=== PATIENT | female | born 1990 | race Caucasian/White ===

== ENCOUNTER 2020-04-01 22:50 | Inpatient (IN) | payer OTHER ==
[2020-04-01] MEDS ORDERED: ELECTROLYTE-148 SOLN 500 ML IV ONE (23:30)
[2020-04-01] MEDS ORDERED: PROMETHAZINE HCL 25 MG/1 ML VIAL ONE (23:52)
[2020-04-01] MEDS ORDERED: BUTORPHANOL TARTRATE 2 MG/ML VIAL ONE (23:52)
[2020-04-02] MEDS ORDERED: ELECTROLYTE-148 SOLN 500 ML IV ONE
[2020-04-02 00:13] LABS: BASO % 0.1 % (0-2.0); HEMATOCRIT 37.4 % (32.4-45.2); HEMOGLOBIN 12.4 GM/dL (10.7-15.3); LYMPH % 6.7 % (8-40); MCH 30.3 pg (25.7-33.7); MCHC 33.3 g/dl (32.0-36.0); MONO % 5.8 % (3.8-10.2); NEUT % 87.4 % (42.8-82.8); PLATELET COUNT 132 K/MM3 (134-434); RBC 4.11 M/mm3 (3.60-5.2); WHITE BLOOD COUNT 15.9 K/mm3 (4.0-10.0)
[2020-04-02] MEDS ORDERED: PROMETHAZINE HCL 25 MG/1 ML VIAL IVPB ONE (00:15)
[2020-04-02] MEDS ORDERED: BUTORPHANOL TARTRATE 2 MG/ML VIAL IVPB ONE (00:15)
[2020-04-02 00:31] LABS: BLOOD UREA NITROGEN 3.5 mg/dL (7-18); CALCIUM 8.7 mg/dL (8.5-10.1)
[2020-04-02 00:33] LABS: POTASSIUM 3.8 mmol/L (3.5-5.1)
[2020-04-02 00:35] LABS: CREATININE 0.5 mg/dL (0.55-1.3)
[2020-04-02 00:55] LABS: ACTIVATED PTT 26.5 SECONDS (25.2-36.5); INR 0.98 (0.83-1.09); PROTHROMBIN TIME (PATIENT) 12.1 SEC (9.7-13.0)
[2020-04-02 01:06] VITALS: BMI 32.9
[2020-04-02] MEDS ORDERED: FENTANYL/BUPIVACAINE/NS/PF - PCEA - 50 ML DISP.SYRIN EP ONE ×3 (02:19→10:21)
[2020-04-02] MEDS ORDERED: BUPIVACAINE HCL/PF 0.25% (2.5MG/ML) 10 ML VIAL ONE (02:26)
[2020-04-02] MEDS: FENTANYL/BUPIVACAINE/NS/PF - PCEA - 50 ML DISP.SYRIN EP SCH (02:45)
[2020-04-02] MEDS ORDERED: NALOXONE HCL 0.4 MG/ML VIAL IVPUSH PRN (02:48)
[2020-04-02] MEDS: OXYTOCIN 30 UNITS in 0.9% NS 30 UNIT/500 ML INFUS.BAG IVPB SCH (03:00)
[2020-04-02] MEDS ORDERED: OXYTOCIN 30 UNITS in 0.9% NS 30 UNIT/500 ML INFUS.BAG IVPB ONE (03:23)
[2020-04-02] MEDS ORDERED: AMPICILLIN SODIUM 2 GM VIAL ONE (06:59)
[2020-04-02] MEDS ORDERED: AMPICILLIN - 2 GM in SODIUM CHLORIDE 100 ML IVPB ONE (07:00)
[2020-04-02] MEDS ORDERED: PCA PUMP NR ONE (07:32)
[2020-04-02] MEDS ORDERED: BUPIVACAINE HCL/PF 0.5% (5MG/ML) 10 ML VIAL ONE (10:41)
[2020-04-02] MEDS ORDERED: AMPICILLIN SODIUM 1 GM VIAL ONE (10:58)
[2020-04-02] MEDS: AMPICILLIN - 1 GM in SODIUM CHLORIDE 100 ML IVPB SCH ×2 (11:00→15:00)
[2020-04-02] MEDS ORDERED: OXYTOCIN 20 UNITS in 0.9% NS 20 UNIT/1,000 ML INFUS.BAG IV ONE ×2 (12:19→16:48)
[2020-04-02] MEDS ORDERED: LIDOCAINE HCL 1% PRESERVATIVE FREE - 30ML VIAL ONE (12:20)
[2020-04-02] MEDS: OXYTOCIN 20 UNITS in 0.9% NS 20 UNIT/1,000 ML INFUS.BAG IV SCH ×2 (14:15→16:50)
[2020-04-02 14:29] LABS: CORD HCO3 22.9 mmHg (20-29); CORD PCO2 73.8 mmHg (30-78); CORD pH 7.109 (7.14-7.44)
[2020-04-02 14:31] LABS: CORD HCO3 22.7 mmHg (20-29); CORD pH 7.135 (7.14-7.44)
[2020-04-02] MEDS ORDERED: BENZOCAINE 28 GM HEMORRHOIDAL OINTMENT TP PRN (15:06)
[2020-04-02] MEDS ORDERED: WITCH HAZEL 50% (TUCKS) 40 PAD/JAR PAD TP PRN (15:06)
[2020-04-02] MEDS ORDERED: BENZOCAINE 20% 57 GM BOTTLE TP PRN (15:06)
[2020-04-02] MEDS ORDERED: METHYLERGONOVINE MALEATE 0.2 MG/1 ML AMP IM PRN (15:06)
[2020-04-02] MEDS ORDERED: IBUPROFEN 600 MG TABLET (FP) PO ONE (15:52)
[2020-04-02] MEDS ORDERED: ACETAMINOPHEN 325 MG TABLET (FP) ONE (15:53)
[2020-04-02] MEDS: IBUPROFEN 600 MG TABLET (FP) PO PRN ×2 (15:55→21:33)
[2020-04-02] MEDS: ACETAMINOPHEN 325 MG TABLET (FP) PO PRN ×2 (15:55→21:34)
[2020-04-02] MEDS: FERROUS SO4 325 MG TABLET (FP) PO SCH (21:28)
[2020-04-03] MEDS: IBUPROFEN 600 MG TABLET (FP) PO PRN ×3 (05:54→22:53)
[2020-04-03] MEDS: ACETAMINOPHEN 325 MG TABLET (FP) PO PRN ×3 (05:54→22:53)
[2020-04-03 06:47] LABS: BASO % 0.3 % (0-2.0); EOS % 0.1 % (0-4.5); HEMATOCRIT 33.4 % (32.4-45.2); HEMOGLOBIN 11.2 GM/dL (10.7-15.3); LYMPH % 10.5 % (8-40); MCH 31.1 pg (25.7-33.7); MCHC 33.5 g/dl (32.0-36.0); MEAN CELL VOLUME 92.9 fl (80-96); MEAN PLT VOLUME 11.8 fl (7.5-11.1); MONO % 7.8 % (3.8-10.2); NEUT % 81.3 % (42.8-82.8); PLATELET COUNT 147 K/MM3 (134-434); RBC 3.59 M/mm3 (3.60-5.2); RDW 15.6 % (11.6-15.6); WHITE BLOOD COUNT 21.5 K/mm3 (4.0-10.0)
[2020-04-03] MEDS: DOCUSATE SODIUM 100 MG CAPSULE (FP) PO SCH (09:22)
[2020-04-03] MEDS: PRENATAL VITAMINS W/ FOLIC ACID TABLET (FP) PO SCH (09:22)
[2020-04-03] MEDS: FERROUS SO4 325 MG TABLET (FP) PO SCH ×2 (09:22→22:54)
[2020-04-03 09:58] LABS: ANISOCYTOSIS 0; MACROCYTOSIS 0; PLATELET ESTIMATE DECREASED
[2020-04-03] MEDS ORDERED: DIPHTH,PERTUSS(ACELL),TET 0.5 ML DISP.SYRIN IM ONE (10:00)
[2020-04-03] MEDS ORDERED: FLU VACCINE (FLULAVAL) PF 60 MCG/0.5 ML SYRINGE 2020-2021 IM ONE (12:00)
[2020-04-03] MEDS ORDERED: SENNOSIDES/DOCUSATE COMBO (SENNA PLUS) TABLET (UD) PO PRN (22:00)
[2020-04-04] MEDS: ACETAMINOPHEN 325 MG TABLET (FP) PO PRN ×2 (08:24→17:52)
[2020-04-04] MEDS: IBUPROFEN 600 MG TABLET (FP) PO PRN ×2 (08:24→17:53)
[2020-04-04] MEDS: PRENATAL VITAMINS W/ FOLIC ACID TABLET (FP) PO SCH (11:23)
[2020-04-04] MEDS: FERROUS SO4 325 MG TABLET (FP) PO SCH ×2 (11:23→21:06)
[2020-04-04] MEDS: DOCUSATE SODIUM 100 MG CAPSULE (FP) PO SCH (11:23)
[2020-04-04] MEDS: OXYTOCIN 30 UNITS in 0.9% NS 30 UNIT/500 ML INFUS.BAG IVPB SCH ×2 (19:15→19:16)
[2020-04-04] MEDS: FENTANYL/BUPIVACAINE/NS/PF - PCEA - 50 ML DISP.SYRIN EP SCH ×2 (19:15→19:16)
[2020-04-04] MEDS: OXYTOCIN 20 UNITS in 0.9% NS 20 UNIT/1,000 ML INFUS.BAG IV SCH (19:16)
[2020-04-05] MEDS: PRENATAL VITAMINS W/ FOLIC ACID TABLET (FP) PO SCH (11:11)
[2020-04-05] MEDS: DOCUSATE SODIUM 100 MG CAPSULE (FP) PO SCH (11:12)
[2020-04-05] MEDS: FERROUS SO4 325 MG TABLET (FP) PO SCH (11:12)
[2020-04-05] MEDS: IBUPROFEN 600 MG TABLET (FP) PO PRN (11:48)
[2020-04-05] MEDS: ACETAMINOPHEN 325 MG TABLET (FP) PO PRN (11:49)
[2020-04-05 13:55] VITALS: BP 121/84; PULSE 88; TEMP 98
== END 2020-04-05 18:30 | disposition home or self-care (01) | DRG 560 ==
LOC: JDEL 22:50 → JLDR 23:00 → J3W 04-02 17:09
PROVIDERS: ADMIT Obstetrics & Gynecology; ATTEND Obstetrics & Gynecology
PROC: 10E0XZZ Delivery of Products of Conception, External Approach (ICD-10-PCS; principal; 2020-04-02)
PROC: 10907ZC Drainage of Amniotic Fluid, Therapeutic from Products of Conception, Via Natural or Artificial Opening (ICD-10-PCS; 2020-04-02)
PROC: 0W8NXZZ Division of Female Perineum, External Approach (ICD-10-PCS; 2020-04-02)
DX: O70.1 Second degree perineal laceration during delivery (principal); Z3A.40 40 weeks gestation of pregnancy; Z37.0 Single live birth
CPT/HCPCS: 36415; 36600; 59025; 59409; 80048; 82803; 85025; 85610; 85730; 86780; 86850; 86900; 86901; C9803; U0003

== ENCOUNTER 2020-04-09 13:50 | Inpatient (IN) | payer OTHER ==
[2020-04-09 13:57] VITALS: BMI 33.5
[2020-04-09 14:51] LABS: BASO % 0.6 % (0-2.0); EOS % 1.1 % (0-4.5); HEMATOCRIT 33.8 % (32.4-45.2); HEMOGLOBIN 11.4 GM/dL (10.7-15.3); LYMPH % 16.3 % (8-40); MCHC 33.6 g/dl (32.0-36.0); MEAN CELL VOLUME 92.3 fl (80-96); MEAN PLT VOLUME 8.7 fl (7.5-11.1); MONO % 7.4 % (3.8-10.2); NEUT % 74.6 % (42.8-82.8); PLATELET COUNT 276 K/MM3 (134-434); RBC 3.67 M/mm3 (3.60-5.2); RDW 15.1 % (11.6-15.6); WHITE BLOOD COUNT 9.5 K/mm3 (4.0-10.0)
[2020-04-09 15:18] LABS: POTASSIUM 4.1 mmol/L (3.5-5.1)
[2020-04-09 15:20] LABS: CALCIUM 8.8 mg/dL (8.5-10.1)
[2020-04-09 15:21] LABS: ALBUMIN 2.8 g/dl (3.4-5.0); BLOOD UREA NITROGEN 12.2 mg/dL (7-18)
[2020-04-09 15:24] LABS: CREATININE 0.6 mg/dL (0.55-1.3)
[2020-04-09 15:25] LABS: BILIRUBIN,TOTAL 0.3 mg/dL (0.2-1); TOT PROT 6.5 g/dl (6.4-8.2); URIC ACID 3.7 mg/dL (2.6-7.2)
[2020-04-09 15:25] LABS: EPI CELLS 19 /uL (0-25.1); HYALINE CASTS 3 /uL (0-3.1); PH,URINE 7.5 (5.0-8.0); URINE APPEARANCE CLOUDY; URINE BACTERIA 658 /uL (0-1359); URINE BILIRUBIN NEGATIVE (NEGATIVE); URINE COLOR ORANGE; URINE GLUCOSE (UA) NEGATIVE (NEGATIVE); URINE KETONE TRACE (NEGATIVE); URINE LEUK ESTERASE 3+ (NEGATIVE); URINE NITRITE NEGATIVE (NEGATIVE); URINE PROTEIN TRACE (NEGATIVE); URINE RBC 38 /uL (0-23.9); URINE UROBILINOGEN 0.2 mg/dL (0.2-1.0); URINE WBC 437 /uL (0-25.8)
[2020-04-09] MEDS ORDERED: ACETAMINOPHEN 325 MG TABLET (FP) ONE (18:03)
[2020-04-09] MEDS: DEXTROSE 5%-LACTATED RINGERS 1,000 ML IV SCH (18:05)
[2020-04-09] MEDS ORDERED: ACETAMINOPHEN 325 MG TABLET (FP) PO ONE (18:45)
[2020-04-09] MEDS ORDERED: MAGNESIUM SULFATE 20GM/500ML - 20 GM/500 ML INFUS.BAG ONE (19:48)
[2020-04-09] MEDS ORDERED: MAGNESIUM 4GM/H20 - 4 GM/100 ML IVPB IVPB ONE (19:48)
[2020-04-09] MEDS: MAGNESIUM 4GM/H20 - 4 GM/100 ML IVPB IVPB SCH (20:00)
[2020-04-09] MEDS: MAGNESIUM SULFATE 20GM/500ML - 20 GM/500 ML INFUS.BAG IVPB SCH (20:30)
[2020-04-09] MEDS: NIFEdipine E.R. 30 MG TABLET PO SCH (21:30)
[2020-04-10] MEDS ORDERED: ACETAMINOPHEN 325 MG TABLET (FP) ONE ×4 (00:04→18:38)
[2020-04-10] MEDS: ACETAMINOPHEN 325 MG TABLET (FP) PO PRN ×4 (00:15→18:43)
[2020-04-10] MEDS ORDERED: MAGNESIUM SULFATE 20GM/500ML - 20 GM/500 ML INFUS.BAG ONE (05:12)
[2020-04-10] MEDS: DEXTROSE 5%-LACTATED RINGERS 1,000 ML IV SCH ×2 (05:15→22:21)
[2020-04-10] MEDS: MAGNESIUM SULFATE 20GM/500ML - 20 GM/500 ML INFUS.BAG IVPB SCH ×2 (05:15→22:31)
[2020-04-10] MEDS ORDERED: NIFEdipine E.R. 30 MG TABLET ONE (09:57)
[2020-04-10] MEDS: NIFEdipine E.R. 30 MG TABLET PO SCH (10:00)
[2020-04-10] MEDS: MAGNESIUM 4GM/H20 - 4 GM/100 ML IVPB IVPB SCH (22:22)
[2020-04-11] MEDS: NIFEdipine E.R. 30 MG TABLET PO SCH (09:21)
[2020-04-11 21:31] VITALS: BP 138/80; PULSE 100; TEMP 97.5
== END 2020-04-11 22:50 | disposition home or self-care (01) | DRG 561 ==
LOC: JER 13:50 → JERBED 16:38 → JLDR 04-10 08:19 → J3W 04-10 21:30
PROVIDERS: ADMIT Obstetrics & Gynecology; ATTEND Obstetrics & Gynecology
DX: O16.5 Unspecified maternal hypertension, complicating the puerperium (principal)
CPT/HCPCS: 36415; 70470-TC; 71045-TC-FY; 80053; 81003; 82550; 83615; 83735; 84484; 84550; 85025; 93005; 93010; 99285-25; C9803; Q9967; U0003